=== PATIENT | female | born 1970 | race Caucasian/White ===

== ENCOUNTER → 2018-03-30 | Outpatient (CLI) | payer BC ==
[~2018-03-30] MED LIST: ADVIL100 M2; ADVIL100 M2 PO; LEVOTHYROXINE0.2 M1 PO; NORCO 5-325 TA1 EACH PO; PREDNISONE 20 M20 M1 PO; PROVERA10 MG PO; ROBAXIN500 MG PO; TRAMADOL 50 MG50 MG; TRAMADOL 50 MG50 MG PO
== END ==
LOC: M.RAD 10:03
DX: Z12.31 Encounter for screening mammogram for malignant neoplasm of breast (principal)